=== PATIENT | female | born 1965 | race Two or more races ===

== ENCOUNTER → 2024-09-20 | Emergency (ER) | payer OTHER ==
[~2024-09-20] VITALS: Ht 165.1 cm; Wt 86.2 kg
[~2024-09-20] MED LIST: FAMOTIDINE/PF 20 MG/2 ML VIAL IV PUSH STA; TRAMADOL HCL 50 MG TABLET PO STA
== END | disposition home or self-care (01) ==
LOC: ER 18:08
DX: M25.561 Pain in right knee (principal); K29.70 Gastritis, unspecified, without bleeding; W18.39XA Other fall on same level, initial encounter; Y93.89 Activity, other specified; Y92.89 Other specified places as the place of occurrence of the external cause; Z88.0 Allergy status to penicillin